=== PATIENT | female | born 1990 | race Caucasian/White ===

== ENCOUNTER 2017-08-02 15:06 | Inpatient (IN) | payer MEDICAID ==
[~2017-08-02] VITALS: Ht 154.9 cm; Wt 63.2 kg
[2017-08-02] MEDS ORDERED: LACTATED RINGER'S 1,000 ML IV PRN (15:30)
[2017-08-02 15:38] VITALS: Ht 154.9 cm; Wt 63.2 kg
[2017-08-02] MEDS ORDERED: PRENAT PO (15:39)
[2017-08-02] MEDS: LACTATED RINGER'S 1,000 ML IV SCH ×2 (15:52→23:34)
[2017-08-02 15:57] LABS: BASOPHILS % 0.3 % (0.0-2.0); EOSINOPHILS # 0.2 10^3/ul (0.0-0.5); EOSINOPHILS % 1.5 % (0.0-7.0); HEMOGLOBIN 12.1 g/dl (12.0-16.0); LYMPHOCYTES # 3.3 10^3/ul (0.8-2.9); LYMPHOCYTES % 27.3 % (15.0-51.0); MEAN CORPUSCULAR HEMOGLOBIN 30.2 pg (29.0-33.0); MEAN CORPUSCULAR HGB CONC 34.6 g/dl (32.0-37.0); MEAN CORPUSCULAR VOLUME 87.3 fl (82.0-101.0); MEAN PLATELET VOLUME 11.6 fl (7.4-10.4); MONOCYTE # 0.8 10^3/ul (0.3-0.9); MONOCYTES % 6.6 % (0.0-11.0); NEUTROPHIL # 7.6 10^3/ul (1.6-7.5); NEUTROPHILS % 63.5 % (39.0-77.0); PLATELET COUNT 174 10^3/UL (140-415); RED BLOOD COUNT 4.01 10^6/ul (4.20-5.40); RED CELL DISTRIBUTION WIDTH 13.6 % (11.5-14.5)
[2017-08-02] MEDS ORDERED: LIDOCAINE 1% (MPF) 30 ML INJ INJ PRN (16:00)
[2017-08-02] MEDS ORDERED: BUTORPHANOL 2 MG INJ IV PRN (16:00)
[2017-08-02] MEDS ORDERED: METHYLERGONOVINE 0.2 MG INJ IM PRN (16:00)
[2017-08-02] MEDS ORDERED: MISOPROSTOL 200 MCG TAB PR PRN (16:00)
[2017-08-02] MEDS ORDERED: OXYTOCIN 30 UNITS/LR 500 ML IV PRN (16:00)
[2017-08-02] MEDS ORDERED: CARBOPROST 250 MCG INJ IM PRN (16:00)
[2017-08-02] MEDS ORDERED: OXYTOCIN 30 UNITS/LR 500 ML IV SCH ×2 (16:00)
[2017-08-02] MEDS ORDERED: IBUPROFEN 600 MG TAB PO PRN (16:00)
[2017-08-02] MEDS ORDERED: DINOPROSTONE 10 MG VAG SUPP VAG ONE (16:23)
[2017-08-02 16:26] LABS: INR 0.87; PROTIME 11.8 Sec (12.2-14.2); PT RATIO 0.9
[2017-08-02 16:27] LABS: PARTIAL THROMBOPLASTIN TIME 29.7 Sec (25.0-35.0)
--- NOTE | 2017-08-02 18:44 | HP ---
Date/Time of Note Date/Time of Note DATE: 08/02/17 TIME: 18:43 OB - History Hx of Present Free Text/Dictation pt at 39 + weeks and presents for induction of labor from her clinic. pt with a1gdm : 1 Para: 0 Care: Good Care Ultrasounds: Normal mid trimester US Obstetrical Complications: Gestational Diabetes Medical Complications: None Past Family/Social History * Past Medical, Surgical, Family and Obstetric Histories reviewed from chart. OB Admission Exam Physical Exam HEENT: WNL Heart: Rhythm Normal Abdomen: WNL Extremities: Normal Reflexes: Normal Cervical Dilatation: None Last 72 hourBlood Glucose Bedside Glucose - 72 Hours Test 08/02/17 16:49 Bedside Glucose 64mg/dL (70-220) L Last 72 hours Lab Results CBC & BMP 08/02/17 15:00 OB Assessment/Plan Reason for admission: induction of labor Plan: Induction Induction Method: other Other plan: iup 39+ with a1 gmd admit for induction of labor and accu-checks YOLI LAKHANI MD Aug 02, 2017 18:44
[2017-08-02 19:17] VITALS: BP 109/67; PULSE 64; RESP 18
[2017-08-02] MEDS: DEXTROSE 5%-LR 1,000 ML IV PRN ×2 (21:08→23:14)
[2017-08-02] MEDS: ACCU-CHEK XX SCH ×2 (21:12→23:13)
--- NOTE | 2017-08-02 21:21 | RADRPT ---
PROCEDURE: US OB ESTIMATED WEIGHT. CLINICAL INDICATION: Pain. TECHNIQUE: Multiple sonographic images of the pelvis were obtained. The images were reviewed on a PACS workstation. COMPARISON: No pertinent prior examinations were submitted for comparison. FINDINGS: There is a single live intrauterine gestation. Cardiac activity is present with 141 beats per minut e. There is a cephalic presentation. Measurements were made in order to determine age. The results are as follows: BPD =9.4 cm = 38 weeks 2 days HC =33.8 cm = 38 weeks 6 days AC =35.4 cm = 39 weeks 2 days FL =7.3 cm = 37 weeks 3 days Estimated gestational age of approximately 38 weeks 3 days. The estimated date of delivery is 08/13/2017. The EFW = 3573 g . This examination was not performed for anatomy. The placenta is anterior. There is no evidence for an abruption or placenta previa. BREANNA = 4.3 cm. IMPRESSION: EFW = 3573 g. Oligohydramnios RPTAT: HIKT .Ruiz Multani MD, Date Time Electronically viewed and signed by .Ruiz Multani MD, on 08/02/2017 21:20 .T/
[2017-08-03] MEDS: ACCU-CHEK XX SCH ×11 (01:00→21:00)
[2017-08-03] MEDS: DEXTROSE 5%-LR 1,000 ML IV PRN ×2 (02:46→12:04)
[2017-08-03] MEDS ORDERED: FENTAnyl 2MCG/ML-ROPIV 0.2% 100 ML ONE ×2 (05:15→14:18)
[2017-08-03] MEDS: LACTATED RINGER'S 1,000 ML IV SCH ×2 (07:34→20:35)
[2017-08-03] MEDS ORDERED: NALOXONE (0.4 MG/ML) INJ IV PRN (14:30)
[2017-08-03] MEDS ORDERED: DIPHENHYDRAMINE 50 MG INJ IV PRN (14:30)
[2017-08-03] MEDS ORDERED: EPHEDrine SULFATE 50 MG/5 ML SYG IV PRN (14:30)
[2017-08-03] MEDS ORDERED: ONDANSETRON 4 MG INJ IV PRN (14:30)
[2017-08-03] MEDS ORDERED: FENTAnyl 2MCG/ML-ROPIV 0.2% 100 ML BAG EPI SCH (14:30)
--- NOTE | 2017-08-03 21:10 | LDN ---
Date/Time of Note Date/Time of Note DATE: 08/03/17 TIME: 21:08 Delivery Summary Weeks of Gestation 40 weeks Placenta Delivered: Spontaneously Meconium: Thick Episiotomy: No Perineal laceration: 2 Laceration repair: Vaginal and first degree lacerations repaired with 3-0 Vicryl and 3-0 chromic. Anesthesia type: Epidural Estimated blood loss: 400 Sponge & Needle done & correct: Yes All needle counts correct: Yes Any foreign bodies felt in the: No Problems: Delivery Information Sex Sex: female Apgars 1 Minute: 8 5 Minute: 9 Suctioning Nose & mouth suctioned at mayco: Yes Delee suction performed: No Umbilical Cord Umbilical cord with: 3 Vessels Cord presentations: no nuchal cord Cord Blood was obtained: Yes Mother & Baby Disposition Disposition Mom & Baby to Maternity; Good: Yes LEONIDAS DARLING MD Aug 03, 2017 21:10
[2017-08-03] MEDS ORDERED: AMPICILLIN/SULB 3 GM/NS (PMX) 100 ML IVPB SCH (21:30)
[2017-08-03] MEDS ORDERED: ACETAMINOPHEN 325 MG TAB PO ONE (21:30)
[2017-08-03 21:37] LABS: BASOPHILS % 0.2 % (0.0-2.0); EOSINOPHILS % 0.3 % (0.0-7.0); HEMATOCRIT 35.5 % (37.0-47.0); HEMOGLOBIN 12.2 g/dl (12.0-16.0); LYMPHOCYTES # 1.5 10^3/ul (0.8-2.9); LYMPHOCYTES % 11.2 % (15.0-51.0); MEAN CORPUSCULAR HEMOGLOBIN 30.3 pg (29.0-33.0); MEAN CORPUSCULAR HGB CONC 34.4 g/dl (32.0-37.0); MEAN CORPUSCULAR VOLUME 88.3 fl (82.0-101.0); MEAN PLATELET VOLUME 12.1 fl (7.4-10.4); MONOCYTE # 0.8 10^3/ul (0.3-0.9); MONOCYTES % 6.1 % (0.0-11.0); NEUTROPHILS % 81.5 % (39.0-77.0); PLATELET COUNT 152 10^3/UL (140-415); RED BLOOD COUNT 4.02 10^6/ul (4.20-5.40); RED CELL DISTRIBUTION WIDTH 13.8 % (11.5-14.5); WHITE BLOOD COUNT 13.6 10^3/ul (4.8-10.8)
[2017-08-03 23:00] VITALS: BP 122/84; PULSE 81; RESP 18
[2017-08-03 23:30] VITALS: BP 112/78; PULSE 60; RESP 19
[2017-08-04] MEDS ORDERED: WITCH HAZEL/GLYCERIN PAD PR PRN
[2017-08-04] MEDS ORDERED: MISOPROSTOL 200 MCG TAB PR PRN
[2017-08-04] MEDS ORDERED: HYDROCODONE/APAP (5/325) TAB PO PRN
[2017-08-04] MEDS ORDERED: DIBUCAINE 1% 30 GM OINT PR PRN
[2017-08-04] MEDS ORDERED: METHYLERGONOVINE 0.2 MG INJ IM PRN
[2017-08-04] MEDS ORDERED: CARBOPROST 250 MCG INJ IM PRN
[2017-08-04] MEDS ORDERED: ACETAMINOPHEN 325 MG TAB PO PRN
[2017-08-04] MEDS ORDERED: OXYTOCIN 30 UNITS/LR 500 ML IV PRN
[2017-08-04] MEDS ORDERED: BENZOCAINE 20% 56 ML SPRAY TOP PRN
[2017-08-04] MEDS: IBUPROFEN 600 MG TAB PO SCH ×4 (00:21→17:26)
[2017-08-04 03:30] VITALS: BP 107/70; PULSE 65; RESP 18
[2017-08-04] MEDS: AMPICILLIN/SULB 3 GM/NS (PMX) 100 ML IVPB SCH ×5 (03:50→22:12)
[2017-08-04] MEDS: LACTATED RINGER'S 1,000 ML IV* SCH ×2 (04:31)
[2017-08-04 06:35] LABS: BASOPHILS % 0.3 % (0.0-2.0); EOSINOPHILS # 0.1 10^3/ul (0.0-0.5); EOSINOPHILS % 1.1 % (0.0-7.0); HEMATOCRIT 27.1 % (37.0-47.0); HEMOGLOBIN 9.3 g/dl (12.0-16.0); LYMPHOCYTES # 1.9 10^3/ul (0.8-2.9); LYMPHOCYTES % 14.9 % (15.0-51.0); MEAN CORPUSCULAR HEMOGLOBIN 30.1 pg (29.0-33.0); MEAN CORPUSCULAR HGB CONC 34.3 g/dl (32.0-37.0); MEAN CORPUSCULAR VOLUME 87.7 fl (82.0-101.0); MEAN PLATELET VOLUME 11.6 fl (7.4-10.4); MONOCYTE # 0.8 10^3/ul (0.3-0.9); MONOCYTES % 6.3 % (0.0-11.0); NEUTROPHILS % 76.9 % (39.0-77.0); PLATELET COUNT 110 10^3/UL (140-415); RED BLOOD COUNT 3.09 10^6/ul (4.20-5.40); RED CELL DISTRIBUTION WIDTH 14.1 % (11.5-14.5); WHITE BLOOD COUNT 12.9 10^3/ul (4.8-10.8)
[2017-08-04 08:00] VITALS: BP 123/71; PULSE 58; RESP 18
[2017-08-04] MEDS ORDERED: AMPICILLIN/SULB 3 GM/NS (PMX) 100 ML IVPB SCH (08:30)
[2017-08-04] MEDS: SENNA/DOCUSATE NA (8.6MG/50MG) TAB PO SCH ×2 (09:50→22:19)
[2017-08-04 16:00] VITALS: BP 128/75; PULSE 53; RESP 18
--- NOTE | 2017-08-04 18:06 | QN ---
Documentation Comment No complaint Afebrile VSS Fundus Firm Lochia scant PPD #1 stable Routine PP care. LEONIDAS DARLING MD Aug 04, 2017 18:05
--- NOTE | 2017-08-04 18:06 | DS ---
Date/Time of Note Date/Time of Note DATE: 08/04/17 TIME: 18:06 Obstetrical Discharge Record Final Diagnosis Final Diagnosis: Term delivered Vaginal Delivery Obstetrical Delivery: Spontaneous, Laceration, Repaired Complications Gestational Diabetes Induction: Yes Condition on Discharge Physical Assessment Voiding: Yes Bowel Movement: Yes Breast: Soft, non-tender, Filling Fundus: Firm Calf Tenderness: No Patient Condition: Stable LEONIDAS DARLING MD Aug 04, 2017 18:06
[2017-08-04 20:45] VITALS: BP 127/78; PULSE 51; RESP 15
[2017-08-05] VITALS: BP 131/77; PULSE 62; RESP 16
[2017-08-05] MEDS: LACTATED RINGER'S 1,000 ML IV* SCH
[2017-08-05] MEDS: AMPICILLIN/SULB 3 GM/NS (PMX) 100 ML IVPB SCH ×2 (03:50→09:43)
[2017-08-05 04:45] VITALS: BP 121/67; PULSE 56; RESP 15
[2017-08-05] MEDS: IBUPROFEN 600 MG TAB PO SCH ×4 (06:09→17:58)
[2017-08-05 08:00] VITALS: BP 105/58; PULSE 56; RESP 16
[2017-08-05] MEDS ORDERED: DIPHTH/TET/ACEL PERTUSS (ADULT) 0.5 ML VIAL IM* ONE (09:00)
[2017-08-05] MEDS: SENNA/DOCUSATE NA (8.6MG/50MG) TAB PO SCH (09:43)
[2017-08-06] MEDS ORDERED: INFLUENZA VIRUS VACCINE 0.5 ML (DISPENSING) IM* ONE (09:00)
== END 2017-08-05 18:53 | disposition home or self-care (01) | DRG 775 ==
LOC: L-D 15:06 → PP1 08-03 22:59
PROVIDERS: ADMIT Obstetrics & Gynecology; ATTEND Obstetrics & Gynecology
PROC: 10E0XZZ Delivery of Products of Conception, External Approach (ICD-10-PCS; principal; 2017-08-03)
PROC: 0KQM0ZZ Repair Perineum Muscle, Open Approach (ICD-10-PCS; 2017-08-03)
PROC: 3E033VJ Introduction of Other Hormone into Peripheral Vein, Percutaneous Approach (ICD-10-PCS; 2017-08-03)
DX: O48.0 Post-term pregnancy (principal); O71.4 Obstetric high vaginal laceration alone; Z3A.40 40 weeks gestation of pregnancy; Z37.0 Single live birth
CPT/HCPCS: 62319; 76815; 82962; 85025; 85610; 85730; 86592; 86900; 86901; 87040; 87070; 87086; 87340; 88307; 90715; 99464; A4310; J0295; J2590; J3010; J7120